=== PATIENT | male | born 1980 | race African-American/Black ===

== ENCOUNTER 2017-09-13 17:21 | Emergency (ER) | payer BC, OTHER ==
[~2017-09-13] VITALS: Ht 177.8 cm; Wt 115.7 kg
[2017-09-13 18:07] LABS: ABSOLUTE NEUTROPHILS 6.6 thou/uL (1.4-8.2); BASOPHILS 0.8 % (0.0-2.0); HEMATOCRIT 39.8 % (42.0-52.0); HEMOGLOBIN 13.4 gm/dL (14.0-18.0); LYMPHOCYTES 26.6 % (24.0-44.0); MCH 28.4 pg (26.0-34.0); MCHC 33.6 g/dL (28.0-37.0); MCV 84.6 fL (80.0-100.0); MONOCYTES 9.8 % (1.0-8.0); PLATELET COUNT 202 thou/uL (150-400); POLYS 61.8 % (36.0-66.0); RDW 14.9 % (10.5-14.5); WBC 10.7 thou/uL (4.0-11.0)
[2017-09-13 18:16] LABS: CALCIUM 9.1 mg/dL (8.5-10.1); CREATININE 1.4 mg/dL (0.7-1.3); POTASSIUM 3.7 mmol/L (3.5-5.1)
[2017-09-13 18:22] LABS: ALBUMIN 3.7 g/dL (3.4-5.0); TOTAL BILIRUBIN 0.4 mg/dL (<0.1-1.0); TOTAL PROTEIN 7.8 g/dL (6.4-8.2)
[2017-09-13] MEDS ORDERED: BENICAR20 MG PO (19:18)
[2017-09-13 19:34] LABS: URINE BILIRUBIN NEGATIVE (Negative); URINE BLOOD NEGATIVE (Negative); URINE CLARITY CLEAR; URINE COLOR YELLOW; URINE GLUCOSE-RANDOM* NEGATIVE (Negative); URINE KETONES NEGATIVE (Negative); URINE LEUKOCYTES NEGATIVE (Negative); URINE NITRITE NEGATIVE (Negative); URINE PROTEIN (DIPSTICK) NEGATIVE (Negative)
[2017-09-13] MEDS ORDERED: CIPROFLOXACIN500 M1 PO (20:23)
[2017-09-13] MEDS ORDERED: FLAGYL500 MG PO (20:23)
[2017-09-13] MEDS ORDERED: NORCO 5-325 TA1 EACH PO (20:24)
== END 2017-09-13 20:54 | disposition home or self-care (01) ==
LOC: ER 17:21
PROVIDERS: Nurse Practitioner Family
DX: K57.92 Diverticulitis of intestine, part unspecified, without perforation or abscess without bleeding (principal); K80.80 Other cholelithiasis without obstruction; I10 Essential (primary) hypertension